=== PATIENT | male | born 1950 | race American Indian/Alaskan Native ===

== ENCOUNTER 2016-04-17 12:20 | Emergency (ER) | payer MEDICARE ==
[2016-04-17 13:14] VITALS: BP 150/103
[2016-04-17] MEDS ORDERED: MORPHINE IM ONE (15:55)
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
--- NOTE | 2016-04-17 16:36 | XRay Report ---
FINAL REPORT EXAM: XR SPINE LUMBOSACRAL 2-3V HISTORY: fall/low back pain TECHNIQUE: AP, lateral and lumbosacral spot views of the lumbar spine. PRIORS: None. FINDINGS: There are five lumbar type vertebral bodies. Normal alignment. No compression fracture. There is disc space narrowing and anterior osteophyte formations at L3-4, L4-5 and L5-S1. Facet arthropathy is seen throughout the lumbar spine. The paravertebral soft tissues are normal. IMPRESSION: 1. No acute lumbar spine abnormality. 2. Degenerative disc disease and facet arthropathy of the lumbar spine.
== END 2016-04-17 16:55 | disposition home or self-care (01) ==
LOC: ED 12:20
DX: S39.012A Strain of muscle, fascia and tendon of lower back, initial encounter (principal); I10 Essential (primary) hypertension; M54.30 Sciatica, unspecified side; M19.90 Unspecified osteoarthritis, unspecified site; Z86.718 Personal history of other venous thrombosis and embolism; Z86.19 Personal history of other infectious and parasitic diseases; Z88.6 Allergy status to analgesic agent; W10.8XXA Fall (on) (from) other stairs and steps, initial encounter; Y93.01 Activity, walking, marching and hiking; Y99.8 Other external cause status; Y92.098 Other place in other non-institutional residence as the place of occurrence of the external cause
CPT/HCPCS: 72100; 96372; 99283; J2270

== ENCOUNTER 2016-07-13 12:42 | Emergency (ER) | payer MEDICARE ==
[2016-07-13] MEDS ORDERED: NORCO 10/325 PO ONE (15:23)
[2016-07-13] MEDS ORDERED: BOOSTRIX IM ONE (15:53)
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
--- NOTE | 2016-07-13 16:03 | Cat Scan Report ---
CT scan of head without contrast: History: Fall. Findings: Ventricles are normal in size and midline in location. No evidence of acute ischemia, hemorrhage or mass. No extra-axial fluid collection. Normal brainstem and cerebellum. Impression: No acute intracranial abnormality.
[2016-07-13] MEDS ORDERED: ZESTRIL PO ONE (16:19)
--- NOTE | 2016-07-13 18:36 | XRay Report ---
FINAL REPORT PROCEDURE: XR SPINE LUMBOSACRAL 2-3V TECHNIQUE: Lumbar spine radiographs, including AP, lateral, and lumbosacral spot views. CPT 00733 HISTORY: Pain after fall. COMPARISON: No prior studies are available for comparison. FINDINGS: Alignment: Normal. Vertebral body heights/Disk spaces: Multilevel osteophytes. Moderate multilevel disc space narrowing, most severe at L4-5. Associated endplate changes. Approximately 40 percent loss of L1 vertebral body height. Fracture(s): None. Facets: Mild L5-S1 facet arthropathy. Bone mineralization: Normal. IMPRESSION: Degenerative changes of the lumbar spine. Age indeterminate L1 compression. Consider CT scan or MRI for further characterization if there is concern for acute compression fracture (and if patient has no contraindication to MRI).
[2016-07-13] MEDS ORDERED: CATAPRES PO ONE (19:36)
--- NOTE | 2016-07-13 19:55 | Cat Scan Report ---
FINAL REPORT PROCEDURE: CT LUMBAR SPINE WO CON TECHNIQUE: Computerized axial tomography of the lumbar spine was performed from T12 to the sacrum without contrast material. HISTORY: abnormal xr, fall, pain COMPARISON: X-rays from same day and April 17, 2016 FINDINGS: Minimal dextroscoliosis is seen centered in the upper lumbar spine which is stable dating back to March of 2016. Schmorl's node formation is seen in the endplates of L3 as well as the inferior endplate of L4 and both endplates of L5. No compression fractures are seen with abnormal appearance of L1 on x-rays likely being from the scoliosis. No stenosis is seen at L1-2. Minimal uncovertebral osteophyte formation at L2-3 causes little neural foraminal narrowing. Similar finding is seen at L3-4. At L4-5 there is diffuse disc bulge which is eccentric to the right. Mild associated uncovertebral osteophytes are seen. Likely moderate bilateral neural foraminal stenosis is seen, with moderate right neural foraminal narrowing, mild left neural foraminal narrowing and mild central canal narrowing. At L5-S1, uncovertebral osteophytes cause moderate left neural foraminal stenosis and left lateral recess stenosis. IMPRESSION: Moderate arthritic changes are seen with moderate spondylosis. No fracture is seen.
[2016-07-13 20:59] VITALS: BP 142/105
== END 2016-07-13 21:21 | disposition home or self-care (01) ==
LOC: ED 12:42
DX: S09.90XA Unspecified injury of head, initial encounter (principal); S00.01XA Abrasion of scalp, initial encounter; M54.42 Lumbago with sciatica, left side; I10 Essential (primary) hypertension; M19.90 Unspecified osteoarthritis, unspecified site; Z86.718 Personal history of other venous thrombosis and embolism; Z86.19 Personal history of other infectious and parasitic diseases; Z88.8 Allergy status to other drugs, medicaments and biological substances; W18.09XA Striking against other object with subsequent fall, initial encounter; Y93.02 Activity, running; Y99.8 Other external cause status; Y92.89 Other specified places as the place of occurrence of the external cause
CPT/HCPCS: 70450; 72100; 72131; 90471; 90715